=== PATIENT | male | born 1965 | race Caucasian/White ===

== ENCOUNTER 2023-07-03 06:29 | Day surgery (SDC) | payer OTHER, SELFPAY ==
[2023-06-18 09:06] LABS: APTT 29.1 Sec (23.4-35.0); INR 1.09; PT 14.2 Sec (11.4-14.6)
[2023-06-18 12:57] VITALS: BMI 32.6
[2023-07-03] VITALS (14 sets, daily range): BP systolic 95–123; BP diastolic 58–72; BMI 32.6
[2023-07-03] MEDS: NORMOSOL-R 1000 IV (08:52)
--- NOTE | 2023-07-03 11:40 | W.IMMPOSTOP ---
Surgical Immed Post Op Note
-
Primary Surgeon:
joseph
Assisting Surgeon:
Pre-op Diagnosis:
bph
Post-op Diagnosis:
same
Procedure Performed:
TURP
Anesthesia Type:
gen
Specimen / Cultures:
prostate chips
Estimated Blood Loss:
50cc
Complications:
none
Operative Findings:
TURP performed
to pacu with [address] shannan kemp cbi
[2023-07-03] MEDS: DILAUDID 0.25 MG IV ×2 (12:05→12:15)
[2023-07-03] MEDS: DILAUDID 0.5 MG IV ×2 (12:33→20:33)
[2023-07-03] MEDS: DEMEROL 12.5 MG IV ×2 (13:00→13:10)
[2023-07-03 13:43] LABS: Hematocrit 33.6 % (39.0-52.0); Hemoglobin 11.5 g/dL (13.0-18.0); Mean Corp Hgb Conc. 34.2 g/dL (33.0-37.0); Mean Corpuscular Hgb 30.8 pg (27.0-31.0); Mean Corpuscular Volume 90.1 fL (80.0-94.0); Mean Platelet Volume 8.1 fL (7.4-10.4); Platelet Count 159 10^3/uL (130-400); Red Blood Cell Count 3.73 10^6/uL (4.70-6.10); Red Cell Dist. Width 12.5 % (11.5-14.5); White Blood Cell Count 5.7 10^3/uL (4.8-10.8)
[2023-07-03 13:56] LABS: Blood Urea Nitrogen 20 mg/dl (9-20); Calcium 8.1 mg/dl (8.4-10.2); Carbon Dioxide 27 mmol/L (22-30); Chloride 102 mmol/L (98-107); Estimated Creatinine Clearance 101 ml/min; Glucose 102 mg/dl (70-99); Potassium 4.7 mmol/L (3.5-5.1); Sodium 133 mmol/L (135-145); eGFR > 60.00
[2023-07-03] MEDS: NSS with KCL 20 MEQ 1000 IV ×2 (14:00→22:27)
[2023-07-03] MEDS: FLOMAX 0.800000000000000044 MG PO (17:40)
--- NOTE | 2023-07-03 18:00 | PTCARENOTE ---
Per order, took traction off campbell catheter.
[2023-07-03] MEDS: COLACE 100 MG PO (20:33)
[2023-07-03] MEDS: VIBRAMYCIN 100 MG PO (20:34)
[2023-07-03] MEDS: MELATONIN 5 MG PO (21:27)
[2023-07-04 03:15] VITALS: BP 103/62
[2023-07-04 05:39] LABS: Hematocrit 33.1 % (39.0-52.0); Mean Corp Hgb Conc. 33.2 g/dL (33.0-37.0); Mean Corpuscular Hgb 30.3 pg (27.0-31.0); Mean Corpuscular Volume 91.2 fL (80.0-94.0); Platelet Count 179 10^3/uL (130-400); Red Blood Cell Count 3.63 10^6/uL (4.70-6.10); Red Cell Dist. Width 12.6 % (11.5-14.5); White Blood Cell Count 8.2 10^3/uL (4.8-10.8)
[2023-07-04 06:01] LABS: Blood Urea Nitrogen 17 mg/dl (9-20); Calcium 8.3 mg/dl (8.4-10.2); Carbon Dioxide 27 mmol/L (22-30); Chloride 103 mmol/L (98-107); Estimated Creatinine Clearance 113 ml/min; Glucose 97 mg/dl (70-99); Potassium 4.3 mmol/L (3.5-5.1); Sodium 136 mmol/L (135-145); eGFR > 60.00
[2023-07-04] MEDS: ULTRAM 50 MG PO (06:23)
[2023-07-04 07:00] VITALS: BP 106/62
--- NOTE | 2023-07-04 07:59 | W.PN.URO.CBU ---
Today's Communication / Plan
-
routine post TURP care
Assessment / Plan
-
s/p TURP
UOOB
wean cbi- off at midngiht
regular diet
if urine clear in am- campbell removal for TOV
Diagnosis
-
Date of Service: July 04, 2023
-
Patient Diagnosis:
bph
Post Op Day:
TURP 07/03
Subjective
-
pt comfortable
urine clear to light pink on slow drip cbi
labd stable
Objective
-
Vital Signs
Temp Pulse Resp BP Pulse Ox
97.4 F 62 16 106/62 99
07/04/23 07:00 07/04/23 07:00 07/04/23 07:00 07/04/23 07:00 07/04/23 07:00
Intake and Output
07/03/23 07/04/23 07/05/23
06:59 06:59 06:59
Intake Total 1020 / 1020
Output Total 6100 / 6100
Balance -5080 / -5080
Intake:
Oral fluids 720 / 720
IV fluids (Total) 300 / 300
Normosol 300 / 300
Output:
True Urine Output from CBI 6100 / 6100
Laboratory Results
07/04/23 05:25
07/04/23 05:25
Review of Systems
-
Constitutional: No Symptoms
Respiratory: No Symptoms
Cardiac: No Symptoms
Abdomen/GI: No Symptoms
Physical Exam
-
General - well developed, well nourished, no acute distress
Abdomen - soft, non-tender
Genitalia - [address]
Skin - warm & dry with no rash
Neuro - AOx3, no motor deficits
[2023-07-04] MEDS: COLACE 100 MG PO ×2 (08:06→19:34)
[2023-07-04] MEDS: THERAGRAN 1 TABLET PO (08:06)
[2023-07-04] MEDS: VIBRAMYCIN 100 MG PO ×2 (08:06→19:34)
[2023-07-04] MEDS: TIMOPTIC 0.5% OPHTHALMIC SOLUTION 1 DROP LEFT EYE (08:06)
[2023-07-04 11:00] VITALS: BP 112/55
[2023-07-04] MEDS: TYLENOL 650 MG PO (13:37)
[2023-07-04 15:00] VITALS: BP 120/60
[2023-07-04] MEDS: FLOMAX 0.800000000000000044 MG PO (17:47)
[2023-07-04] MEDS: MELATONIN 5 MG PO (21:27)
[2023-07-04 23:15] VITALS: BP 108/65
[2023-07-05 07:00] VITALS: BP 112/69
--- NOTE | 2023-07-05 08:00 | W.PN.URO.CBU ---
Addendum entered and electronically signed by Vamsi Arellano MD 07/05/23 13:28:
Voided 600 cc of myles-colored urine w/o clots.
Reviewed post-op instructions/care w/ pt and spouse.
OK to d/c home.
D/w RN.
Original Note:
Today's Communication / Plan
-
TOV this AM
Post-void residuals to confirm emptying
D/w patient.
D/w RN.
Assessment / Plan
-
s/p TURP 2/15
OOB w/ ambulation
TOV this AM
Regular diet
If voiding w/ low PVRs through mid-day, plan for d/c home in afternoon
Diagnosis
-
Date of Service: July 05, 2023
-
Patient Diagnosis:
BPH
Post Op Day:
s/p TURP 2/15
Subjective
-
[place] catheter removed this AM - clear off CBI.
Voided x1 already this AM.
Tolerating diet.
Objective
-
Vital Signs
Temp Pulse Resp BP Pulse Ox
97.7 F 67 18 112/69 97
07/05/23 07:00 07/05/23 07:00 07/05/23 07:00 07/05/23 07:00 07/05/23 07:00
Intake and Output
07/04/23 07/05/23 07/06/23
06:59 06:59 06:59
Intake Total 1020 / 1020 1260 / 1260
Output Total 6100 / 6100 1600 / 1600
Balance -5080 / -5080 -340 / -340
Intake:
Oral fluids 720 / 720 1260 / 1260
IV fluids (Total) 300 / 300
Normosol 300 / 300
Output:
Urine, Voided 300 / 300
True Urine Output from CBI 6100 / 6100 1300 / 1300
Laboratory Results
07/04/23 05:25
07/04/23 05:25
Physical Exam
-
General - well developed, well nourished, no acute distress
Abdomen - soft, non-tender
Genitalia - normal
Skin - warm & dry with no rash
Neuro - AOx3, no motor deficits
Extremities - no clubbing, no cyanosis, no edema
Care Review
Data Reviewed
Discussed with: Nursing
[2023-07-05] MEDS: VIBRAMYCIN 100 MG PO (08:15)
[2023-07-05] MEDS: THERAGRAN 1 TABLET PO (08:15)
[2023-07-05] MEDS: COLACE 100 MG PO (08:15)
[2023-07-05] MEDS: TIMOPTIC 0.5% OPHTHALMIC SOLUTION 1 DROP LEFT EYE (08:15)
--- NOTE | 2023-07-05 13:27 | W.DS.TRANS ---
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
-
Discharge Instructions:
Sleep Apnea Risk Low
Discharge Diagnosis/Procedures you had a transurethral resection of the
prostate
Diet No restrictions
Activity No strenuous activity
Additional Activity no lifting over 10lbs for 7 days
Driving Restrictions No driving for 1 week
Bathing Restrictions OK to Shower
Wound Care expect some blood in urine and urinary urgency
and frequency
Instructions:
Stand-Alone Forms:
Changes to Home Medications: No
Discharge Medications:
DC Medications w/original date entered in [employer]
timolol maleate 0.5 % once daily eye drops (Istalol) 1 drp LEFT EYE DAILY TO LEFT EYE 03/08/16
tamsulosin 0.4 mg capsule 0.8 mg PO QPM 12/25/17
inulin-chromium picolinate 2 gram-100 mcg chewable tablet (Fiber Gummies (with chromium)) 1 ea PO DAILY 12/21/19
fluticasone propionate 50 mcg/actuation nasal spray,suspension 1 spray intranasal BID 07/01/23
otvpcnwbjpxk-afxkslgr-qpqtka tablet 1 tab PO DAILY 07/01/23
doxycycline hyclate 100 mg capsule 100 mg PO BID #10 caps 07/04/23
Home Medication Changes
Pending Results: No
[2023-07-05] MEDS: ULTRAM 50 MG PO (13:49)
== END 2023-07-05 14:47 | disposition home or self-care (01) ==
LOC: SDS 06:29
PROVIDERS: ATTENDING PHYSICIAN Specialist
DX: N40.1 Benign prostatic hyperplasia with lower urinary tract symptoms (principal); N41.1 Chronic prostatitis; Z85.47 Personal history of malignant neoplasm of testis
CPT/HCPCS: 52601; 88305; 36415; 80048; 85027; 85610; 85730; 93005

== ENCOUNTER 2025-02-09 06:09 | Day surgery (SDC) | payer OTHER, SELFPAY ==
[2025-02-09] VITALS (11 sets, daily range): BP systolic 99–136; BP diastolic 62–83; BMI 31.5
[2025-02-09] MEDS: METHOCARBAMOL 1500 MG PO (07:40)
[2025-02-09] MEDS: TYLENOL 1000 MG PO (07:41)
[2025-02-09] MEDS: LYRICA 150 MG PO (07:41)
[2025-02-09] MEDS: NORMOSOL-R/PLASMALYTE-A 1000 IV (07:43)
[2025-02-09] MEDS: ROXICODONE 5 MG PO (10:53)
== END 2025-02-09 13:15 | disposition home or self-care (01) ==
LOC: SDS 06:09
PROVIDERS: ATTENDING PHYSICIAN Orthopaedic Surgery Orthopaedic Surgery of the Spine
DX: M48.061 Spinal stenosis, lumbar region without neurogenic claudication (principal)
CPT/HCPCS: 63047; 72020